=== PATIENT | male | born 1950 | race Caucasian/White ===

== ENCOUNTER → 2016-07-10 | Outpatient (CLI) | payer MEDICARE, OTHER | END | disposition home or self-care (01) | LOC: PCVCIMAG 13:16 | PROVIDERS: ATTEND Nuclear Medicine Nuclear Cardiology | DX: I70.213 Atherosclerosis of native arteries of extremities with intermittent claudication, bilateral legs (principal); I25.10 Atherosclerotic heart disease of native coronary artery without angina pectoris; I77.9 Disorder of arteries and arterioles, unspecified; E78.00 Pure hypercholesterolemia, unspecified; M54.16 Radiculopathy, lumbar region; Z72.0 Tobacco use; Z95.820 Peripheral vascular angioplasty status with implants and grafts | CPT/HCPCS: 80061; 93005; 93923; 93925; G0463; 93924 ==

== ENCOUNTER → 2017-01-27 | Outpatient (CLI) | payer MEDICARE, OTHER ==
--- NOTE | 2017-01-27 11:25 | PCVCIMAG ---
EXAM: BILATERAL CAROTID DUPLEX INDICATION: Carotid Occlusive Disease. FINDINGS: Doppler Measurements (centimeters per second): RIGHT: Peak CCA-73, Peak ECA-140, Diastolic ICA-18, Peak ICA-77, ICA/CCA Ratio-1.1. LEFT: Peak CCA-84, Peak ECA-110, Diastolic ICA-45, Peak ICA-126, ICA/CCA Ratio-1.5. RIGHT CAROTID: The carotid bulb has moderate plaque. The proximal internal carotid artery shows <40% stenosis. The common carotid artery shows no significant stenosis. The external carotid artery shows 40% stenosis. LEFT CAROTID: The carotid bulb has mild plaque. The proximal internal carotid artery shows 40-50% stenosis. The common carotid artery shows no significant stenosis. The external carotid artery shows no significant stenosis. Antegrade flow in both vertebral arteries. IMPRESSION: <40% stenosis of the right internal carotid artery with moderate plaque. 40-50% stenosis of the left internal carotid artery with mild plaque. LOC:[place] [id number]
--- NOTE | 2017-01-27 11:43 | PCVCIMAG ---
EXAM: NONINVASIVE ARTERIAL EXAMINATION OF BOTH LOWER EXTREMITIES INCLUDING PRE AND POST EXERCISE PRESSURE MEASUREMENTS AND DOPPLER WAVEFORMS INDICATION: Peripheral Arterial Disease. Leg pain. FINDINGS: Right Dorsalis Pedis: 131 mm Hg. Right Posterior Tibial: 132 mm Hg. Right VLAD = 1.03. Left Brachial: 128 mm Hg. Left Dorsalis Pedis: 135 mm Hg. Left Posterior Tibial: 130 mm Hg. Left VLAD = 1.05. Post Exercise: Left Brachial 120 mm Hg. Right Posterior Tibial: 105 mm Hg. Left dorsalis pedis: 85 mm Hg. Right VLAD = 0.88. Left VLAD = 0.71. IMPRESSION: No resting ischemia in the right lower extremity. Minimal exercise induced ischemia in the right lower extremity. No resting ischemia in the left lower extremity. Mild exercise induced ischemia in the left lower extremity. LOC:[id number]
--- NOTE | 2017-01-27 12:38 | PCVCIMAG ---
EXAM: BILATERAL LOWER EXTREMITY ARTERIAL DUPLEX INDICATION: Peripheral Arterial Disease. Leg pain. FINDINGS: Right Leg: Satisfactory arterial waveforms throughout the common/profunda/superficial femoral, popliteal, anterior tibial, peroneal, and posterior tibial arteries. No flow limiting stenosis seen. Previous mid/distal superficial femoral artery stent maintaining good patency. Left Leg: Satisfactory arterial waveforms throughout the common/profunda/superficial femoral, popliteal, anterior tibial, peroneal, and posterior tibial arteries. No flow limiting stenosis seen. Previous mid/distal superficial femoral artery stent maintaining good patency. IMPRESSION: No flow limiting stenosis in the right lower extremity. No flow limiting stenosis in the left lower extremity. Previous right and left superficial femoral artery stents maintaining satisfactory patency. LOC:[id number]
--- NOTE | 2017-01-27 13:49 | PCVCIMAG ---
APPROVED REPORT Exam: Nuclear Stress Test Indication: CAD Patient Location: Out-Patient Stress Nurse: Rena Mae RN, Yanci Samuel RN [place] Tech:Fernando Worrell NMTCB Ht: 6 ft 1 in Wt: 210 lbs BSA: 2.20 m2 HR: 61 bpm BP: 137/67 mmHg BMI: 27.7 Rhythm: SR Medical History Medical History: Age, PVD, CVD, CAD, Smoker Medications: Atorvastatin, Bystolic, Effient Allergies: NKDA Exercise History: Physically active Physical Disabilities: Back, Claudication Meds Held (24 hrs): Bystolic NM EXAM: Myocardial Perfusion REST/STRESS Imaging Protocol: Rest Tc-99m/Stress Tc-99m 1 day Resting Data Rest SPECT myocardial perfusion imaging was performed in supine position 45 minutes following the intravenous injection of 11.5 mCi of Tc-99m Sestamibi. Time of rest injection: 0845 Date: 01/27/2017 Pharmacologic Stress Pharmacologic stress test was performed by injecting Regadenoson 0.4 mg IV push followed by the intravenous injection of 34 mCi of Tc-99m Sestamibi. Time of stress injection: 1100 Date: 01/27/2017 The images were gated to evaluate regional wall motion and calculate left ventricular ejection fraction. Study Quality Study: Good Study Data Post stress, the left ventricular ejection was 53%.. SSS: 0 SRS: 0 SDS: 0 TID = 1.06. Perfusion No evidence of stress induced ischemia or prior myocardial infarction. Wall Motion Normal left ventricular size and function with no regional wall motion abnormalities. Nuclear Conclusion No evidence of stress induced ischemia or prior myocardial infarction. Normal left ventricular size and function with no regional wall motion abnormalities. Post stress, the left ventricular ejection was 53%.. No prior study available for comparison. Interpreted by: Francis Woods MD Electronically Approved: 01/27/2017 13:07:11 Stress Test Details Stress Test: Pharmacologic stress testing performed using 0.4 mg of regadenoson per 5 mL given IV over 10 seconds. HR Resting HR: 61 bpmMax Heart Rate (APMHR): 156 bpm Max HR Achieved: 81 bpmTarget HR (85% APMHR): 132 bpm % of APMHR: 51 Recovery HR: 82 bpm BP Resting BP: 137/67 mmHg Max BP: 132/66 mmHg ECG Resting ECG: Sinus Rhythm Stress ECG: Sinus Rhythm, Sinus Rhythm, NSSTT changes Recovery ECG: Sinus Rhythm Clinical Reason for Termination: Completed Protocol Stress Symptoms: Flushed, Headache Symptoms resolved with caffeine. Stress ECG Conclusion ECG: Non-ischemic <Conclusion> ECG: Non-ischemic
== END | disposition home or self-care (01) ==
LOC: PCVCIMAG 08:20
PROVIDERS: ATTEND Nuclear Medicine Nuclear Cardiology
DX: I65.23 Occlusion and stenosis of bilateral carotid arteries (principal); I73.9 Peripheral vascular disease, unspecified; I25.10 Atherosclerotic heart disease of native coronary artery without angina pectoris; K52.9 Noninfective gastroenteritis and colitis, unspecified; E78.00 Pure hypercholesterolemia, unspecified; Z95.828 Presence of other vascular implants and grafts; Z79.82 Long term (current) use of aspirin; Z87.891 Personal history of nicotine dependence
CPT/HCPCS: 78452; 80061; 93017; 93880; 93923; 93925; A9500; G0463; 93924

== ENCOUNTER → 2017-10-27 | Outpatient (CLI) | payer MEDICARE, OTHER | END | disposition home or self-care (01) | LOC: PCVCIMAG 13:47 | DX: I73.9 Peripheral vascular disease, unspecified (principal); I25.10 Atherosclerotic heart disease of native coronary artery without angina pectoris; E78.00 Pure hypercholesterolemia, unspecified; I77.9 Disorder of arteries and arterioles, unspecified; Z79.82 Long term (current) use of aspirin; Z79.899 Other long term (current) drug therapy | CPT/HCPCS: 80061; 93005; 93923; 93925; G0463 ==

== ENCOUNTER → 2018-08-30 | Outpatient (CLI) | payer MEDICARE, OTHER ==
[~2018-08-30] MED LIST: REGADENOSON 0.4 MG/5 ML DISP.SYRIN. IV ONE
--- NOTE | 2018-08-30 11:00 | PCVCIMAG ---
APPROVED REPORT Indications Stenosis Doppler Spectral Velocity Analysis PSV / EDVPSV / EDV ECA (R) 113 / 10 cm/sECA (L) 135 / 19 cm/s dICA (R) 71 / 22 cm/sdICA (L) 78 / 25 cm/s Naty (R) 82 / 26 cm/smICA (L) 98 / 35 cm/s pICA (R) 71 / 22 cm/spICA (L) 106 / 17 cm/s Bulb (R) 46 / 10 cm/sBulb (L) 76 / 15 cm/s dCCA (R) 70 / 17 cm/sdCCA (L) 76 / 16 cm/s mCCA (R) 65 / 16 cm/smCCA (L) 80 / 23 cm/s Vert (R) 43 / 15 cm/sVert (L) 56 / 14 cm/s ICA/CCA 1.17ICA/CCA 1.39 Findings The right carotid bulb has moderate calcified plaque. The right proximal internal carotid artery shows <40% stenosis. The right common carotid artery shows no significant stenosis. The right external carotid artery shows no significant stenosis. The left carotid bulb has moderate plaque. The left proximal internal carotid artery shows <40% stenosis. The left common carotid artery shows no significant stenosis. The left external carotid artery shows <50% stenosis. Conclusion 1. Right internal carotid artery stenosis (less than 40%). 2. Left internal carotid artery stenosis (less than 40%). 3. Antegrade vertebral flow Similar to November 2015
--- NOTE | 2018-08-30 16:47 | PCVCIMAG ---
APPROVED REPORT Imaging Protocol: Rest Tc-99m/Stress Tc-99m 1 day Study performed: 08/30/2018 10:03:14 Indication: CAD Patient Location: Out-Patient Stress Nurse: Rena Mae RN, Yanci Samuel RN [place] Tech:Sabrina IFRAH CaMT Ht: 6 ft 1 in Wt: 220 lbs BSA: 2.24 m2 HR: 56 bpm BP: 138/69 mmHg BMI: 29.0 Rhythm: Sinus Bradycardia Medical History Medical History: Hyperlipidemia, CKD, PVD, Current Smoker Medications: ASA, Bystolic, Lipitor Allergies: No known drug allergies Cardiac Risk Factors: Age Previous Cardiac Procedures: 2016 PCI - RCA Pretest Chest Pain Characteristics: No chest pain Exercise History: Sedentary Physical Disabilities: Back/Legs Meds Held (24 hrs): Bystolic Resting Data Rest SPECT myocardial perfusion imaging was performed in supine position 45 minutes following the intravenous injection of 10.1 mCi of Tc-99m Sestamibi. Time of rest injection: 1015 Date: 08/30/2018 Administration Route: IV Administration Site: Right AC Pharmacologic Stress Pharmacologic stress test was performed by injecting Regadenoson 0.4 mg IV push over 10-15 seconds immediately followed by the intravenous injection of 31.2 mCi of Tc-99m Sestamibi. Time of stress injection: 1200 Date: 08/30/2018 Administration Route: IV Administration Site: Right AC Gated Stress SPECT was performed 45 minutes after stress injection. The images were gated to evaluate regional wall motion and calculate left ventricular ejection fraction. Stress Test Details Stress Test: Pharmacologic stress testing performed using 0.4 mg of regadenoson per 5 mL given IV over 10 seconds. Reason for pharmacologic stress test: back and leg issues. HRMax Heart Rate (APMHR): 155 bpm Resting HR: 56 bpmTarget HR (85% APMHR): 131 bpm Max HR Achieved: 78 bpm % of APMHR: 50 Recovery HR: 72 bpm BP Resting BP: 138/69 mmHg Max BP: 148/77 mmHg Recovery BP: 141/76 mmHg ECG Resting ECG: Sinus Bradycardia Stress ECG: Sinus Rhythm ST Change: None Arrhythmia: None Recovery ECG: Sinus Rhythm Recovery ST Change: None Recovery Arrhythmia: None Clinical Reason for Termination: Completed protocol Stress Symptoms: Lightheaded Exercise duration: 0 min 55 sec Symptoms resolved during recovery. Stress ECG Conclusion ECG: Non-ischemic Study Quality Study: Good Study Data Post stress, the left ventricular ejection was 61%.. SSS: 0 SRS: 2 SDS: 0 TID = 1.13. Perfusion No evidence of stress induced ischemia or prior myocardial infarction. Wall Motion Normal left ventricular size and function with no regional wall motion abnormalities. Nuclear Conclusion No evidence of stress induced ischemia or prior myocardial infarction. Normal left ventricular size and function with no regional wall motion abnormalities. Post stress, the left ventricular ejection was 61%. No change since prior study dated January 2017. Interpreted by: Francis Wodos MD Electronically Approved: 08/30/2018 16:23:19 <Conclusion> ECG: Non-ischemic
--- NOTE | 2018-08-30 23:09 | PCVCIMAG ---
EXAM: NONINVASIVE ARTERIAL EXAMINATION OF BOTH LOWER EXTREMITIES INCLUDING PRE AND POST EXERCISE PRESSURE MEASUREMENTS AND DOPPLER WAVEFORMS INDICATION: Peripheral Arterial Disease. Leg pain. FINDINGS: Right Brachial: 139 mm Hg. Right Dorsalis Pedis: 58 mm Hg. Right Posterior Tibial: 68 mm Hg. Right VLAD = 0.49. Left Brachial: 130 mm Hg. Left Dorsalis Pedis: 123 mm Hg. Left Posterior Tibial: 126 mm Hg. Left VLAD = 0.91. Post Exercise: Right Brachial 146 mm Hg. Right Posterior Tibial: 26 mm Hg. Left Posterior Tibial: 100 mm Hg. Right VLAD = 0.18. Left VLAD = 0.68. IMPRESSION: Moderate resting ischemia in the right lower extremity. Severe exercise induced ischemia in the right lower extremity. No resting ischemia in the left lower extremity. Mild exercise induced ischemia in the left lower extremity. LOC:OFFICE
--- NOTE | 2018-08-30 23:12 | PCVCIMAG ---
EXAM: BILATERAL LOWER EXTREMITY ARTERIAL DUPLEX INDICATION: Peripheral Arterial Disease. Leg pain. FINDINGS: Right Leg: Common femoral arteries patent. 75% stenosis origin profunda femoral artery. Segmental occlusion distal superficial femoral artery within prior stent has developed since October 2017. 70% stenosis proximal circle popliteal artery. The anterior tibial, peroneal, and posterior tibial arteries are patent. Left Leg: Satisfactory arterial waveforms throughout the common/profunda/superficial femoral, popliteal, anterior tibial, peroneal, and posterior tibial arteries. No flow limiting stenosis seen. IMPRESSION: Segmental occlusion distal right superficial femoral artery within prior stent has developed since prior study. 70% stenosis proximal circle right popliteal artery. No flow limiting stenosis in the left lower extremity. LOC:OFFICE
== END | disposition home or self-care (01) ==
LOC: PCVCIMAG 08:15
PROVIDERS: ATTEND Internal Medicine Cardiovascular Disease
DX: I65.23 Occlusion and stenosis of bilateral carotid arteries (principal); I25.10 Atherosclerotic heart disease of native coronary artery without angina pectoris; I73.9 Peripheral vascular disease, unspecified; E78.00 Pure hypercholesterolemia, unspecified; I10 Essential (primary) hypertension; F17.210 Nicotine dependence, cigarettes, uncomplicated; Z79.82 Long term (current) use of aspirin
CPT/HCPCS: 78452; 93017; 93880; 93924; 93925; A9500; G0463; J2785; 36415; 80061

== ENCOUNTER → 2019-04-07 | Outpatient (CLI) | payer MEDICARE, OTHER ==
--- NOTE | 2019-04-07 15:41 | PCVCIMAG ---
EXAM: BILATERAL LOWER EXTREMITY ARTERIAL DUPLEX INDICATION: Peripheral Arterial Disease. Leg pain. FINDINGS: Right Leg: Common femoral artery is patent. 90% stenosis origin profunda femoral artery. Occlusion mid/distal superficial femoral artery within prior stent. Popliteal artery is patent. The anterior tibial, peroneal, and posterior tibial arteries are patent. Left Leg: Common femoral, femoral arteries are patent. Superficial femoral artery and popliteal artery are patent. Previous stent superficial femoral artery maintaining satisfactory patency. The anterior tibial, peroneal, and posterior tibial arteries are patent. IMPRESSION: Occlusion mid/distal right superficial femoral artery within prior stent is unchanged since August 2018 study. Previous left superficial femoral artery stent maintaining good patency. LOC:[id number]
== END | disposition home or self-care (01) ==
LOC: PCVCIMAG 13:42
PROVIDERS: ATTEND Internal Medicine Cardiovascular Disease
DX: I70.291 Other atherosclerosis of native arteries of extremities, right leg (principal); I25.10 Atherosclerotic heart disease of native coronary artery without angina pectoris; I65.23 Occlusion and stenosis of bilateral carotid arteries; E78.00 Pure hypercholesterolemia, unspecified; I10 Essential (primary) hypertension; Z72.0 Tobacco use; Z90.09 Acquired absence of other part of head and neck; Z82.3 Family history of stroke; Z79.82 Long term (current) use of aspirin; Z79.899 Other long term (current) drug therapy; Z72.89 Other problems related to lifestyle
CPT/HCPCS: 36415; 80061; 93005; 93925; G0463

== ENCOUNTER → 2019-04-07 | Outpatient (CLI) | payer MEDICARE, OTHER | END | disposition home or self-care (01) | LOC: PCVCCLINIC 13:30 | PROVIDERS: ATTEND Internal Medicine Cardiovascular Disease | DX: I25.10 Atherosclerotic heart disease of native coronary artery without angina pectoris (principal); E78.00 Pure hypercholesterolemia, unspecified; I65.23 Occlusion and stenosis of bilateral carotid arteries; I73.9 Peripheral vascular disease, unspecified; I10 Essential (primary) hypertension; Z72.0 Tobacco use; Z90.09 Acquired absence of other part of head and neck; Z82.3 Family history of stroke; Z80.9 Family history of malignant neoplasm, unspecified; Z79.82 Long term (current) use of aspirin; Z79.899 Other long term (current) drug therapy | CPT/HCPCS: 36415; 80061; 93005; G0463 ==